=== PATIENT | female | born 1985 | race Caucasian/White ===

== ENCOUNTER 2024-12-04 12:59 | Outpatient (AMB) | payer BC, SELFPAY ==
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
[2024-12-04 13:12] VITALS: BP 126/63; PULSE 69; RESP 16; TEMP 36.9; O2SAT 98; BMI 28.4
== END 2024-12-04 13:50 | disposition home or self-care (01) ==
LOC: HO.HMCFM 13:00
PROVIDERS: PCP Nurse Practitioner Family; Visit Provider Nurse Practitioner Family
DX: Z23 Encounter for immunization (principal)

== ENCOUNTER → 2024-12-04 12:59 | Outpatient (BNVA) | payer BC, SELFPAY | PROVIDERS: PCP Nurse Practitioner Family; Visit Provider Nurse Practitioner Family | DX: Z00.00 Encounter for general adult medical examination without abnormal findings (principal); Z23 Encounter for immunization; F41.9 Anxiety disorder, unspecified; F32.A Depression, unspecified; H52.10 Myopia, unspecified eye; F12.90 Cannabis use, unspecified, uncomplicated; E63.9 Nutritional deficiency, unspecified; Z72.89 Other problems related to lifestyle; Z79.899 Other long term (current) drug therapy; Z13.31 Encounter for screening for depression; Z13.30 Encounter for screening examination for mental health and behavioral disorders, unspecified | CPT/HCPCS: 90471; 90715; 96127 ==

== ENCOUNTER 2024-12-23 07:37 | Outpatient (REF) | payer BC, SELFPAY ==
[2024-12-23 08:04] LABS: MANUAL DIFF FLAG NO
[2024-12-23 08:29] LABS: Basophils Absolute Auto 0.1 X10*3/uL (0.0-0.2); Basophils Percent Auto 1.1 % (0-2); Eosinophils Absolute Auto 0.2 X10*3/uL (0.0-0.4); Eosinophils Percent Auto 3.2 % (0-4); Hematocrit 42.3 % (37.0-47.0); Hemoglobin 14.4 g/dl (12.0-16.0); Imm Gran Abs Auto 0.01 X10*3/uL (0.00-0.03); Imm Gran Pct Auto 0.2 % (0.0-0.4); Lymphocytes Absolute Auto 2.1 X10*3/uL (1.2-4.9); Lymphocytes Percent Auto 32.6 % (20-40); Mean Corpuscular Volume 85.3 fL (80.0-98.0); Mean Platelet Volume 10.7 fL (9.4-12.3); Monocytes Absolute Auto 0.6 X10*3/uL (0.1-1.2); Monocytes Percent Auto 8.4 % (2-11); Neutrophils Absolute Auto 3.6 x10*3/uL (2.0-8.3); Neutrophils Percent Auto 54.5 % (45-73); Platelet Count 284 X10*3/uL (160-400); Red Blood Count 4.96 X10*6/uL (4.20-5.50); Red Cell Distribution Width 13.2 % (11.0-16.0); White Blood Count 6.5 X10*3/uL (4.8-10.8)
[2024-12-23 09:00] LABS: Alanine Aminotransferase 17 U/L (0-31); Albumin Level 4.4 g/dL (3.5-5.0); Alkaline Phosphatase 68 U/L (39-117); Anion Gap 12 (12-20); Aspartate Amino Transferase 14 U/L (5-31); Bilirubin Total 1.1 mg/dL (0.0-1.0); Blood Urea Nitrogen 11 mg/dL (9-16); Calcium 9.1 mg/dL (8.4-10.2); Carbon Dioxide 25 mmol/L (22-29); Chloride 108 mmol/L (96-108); Cholesterol 213 mg/dL (<200); Estimated Glomerular Filt Rate > 60; Glucose Fasting 101 mg/dL (60-99); HDL Cholesterol 41 mg/dL (>40); LDL Cholesterol Calculated 140 mg/dL (<100); Sodium 141 mmol/L (135-145); Total Protein 6.7 g/dL (6.5-8.0); Triglycerides 160 mg/dL (<150)
[2024-12-23 09:16] LABS: TSH reflex Free T4 1.12 uIU/mL (0.32-4.0); Vitamin D 25-OH Total 15.9 ng/mL (>30)
[2024-12-23 09:53] LABS: Appearance Urine Cloudy; Color Urine Yellow; Glucose Urine UA Negative (Negative); Leukocyte Esterase Urine Negative (Negative); Nitrite Urine Negative (Negative); Specific Gravity - Urine >= 1.030 (1.005-1.025); Urine Blood Negative (Negative); Urine Ketones Negative (Negative); Urine Protein Trace mg/dL (Neg-Trace)
[2024-12-23 10:52] LABS: Microalbum/Creatinine Ratio Ur 5.4 ug/mg cr (<30)
== END 2024-12-23 07:38 | disposition home or self-care (01) ==
LOC: HO.LAB 07:37
PROVIDERS: PCP Nurse Practitioner Family; Visit Provider Nurse Practitioner Family
DX: Z00.00 Encounter for general adult medical examination without abnormal findings (principal)
CPT/HCPCS: 36415; 80053; 80061; 81003; 82043; 82306; 82570; 84443; 85025

== ENCOUNTER 2025-01-01 13:25 | Outpatient (AMB) | payer BC, SELFPAY ==
--- NOTE | 2025-01-01 13:21 | A.OFFPC_ITS ---
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 Required: No Is last menstrual period known: Yes Last menstrual period: 12/13/24 Post menopausal: No Patient : No Allergies ibuprofen (From Motrin) Allergy (Intermediate, Verified 01/01/25 13:22) Swelling latex Allergy (Intermediate, Verified 01/01/25 13:22) blisters Tobacco use date assessed: 01/01/25 Dental Screening Dental Screen Date: 01/01/25 Did you have a dental visit in the last 12 months?: Yes Did you have a dental problem in the last 6 months where you did not have access to dental care?: No Was dental information given to patient?: Patient has dentist HPI HPI Comments History of Present Illness Details 39-year-old female presents [facility] for review of recent lab results. She notes that her anxiety and depressive symptoms have been controlled with sertraline. She notes that she has been making unhealthy dietary choices and walks frequently. She states that her father and mother have history of hyperlipidemia in her father had an ME in his 40s. No acute symptoms at this time. [facility] Medical History (Updated 01/01/25 @ 15:47 by Lucrecia Zimmerman CNP) Eczema Depression Anxiety History of gastroesophageal reflux (GERD) Family History (Updated 12/04/24 @ 13:21 by Antonette Murphy MA) Mother High blood pressure FH: thyroid disease Father High blood pressure Cardiovascular disease Brother High blood pressure High cholesterol Maternal Grandmother Diabetes Breast cancer Liver cancer Maternal Grandmother No problems noted. Maternal Grandfather Diabetes Social History (Updated 12/04/24 @ 13:11 by Antonette Murphy MA) Housing: Apartment Patient Tobacco Use Status: Never used Tobacco e-Cigarette/Vaping Use: Currently Using Second Hand Smoke Exposure: No Substance Use Type: Marijuana Patient : No service: No Current occupational status: employed Current occupation: [employer] Current occupational exposures/hazards: No Cognitive needs: No Hearing needs: No Vision needs: Yes Female Reproductive History Menstrual Date of last menstrual period: 12/13/24 Questionnaire Thrive Questionnaire Date Thrive assessed: 11/27/24 I am a: Patient What is your living situation today?: I have a steady place to live Within the past 12 months, did the food you bought not last and you didn't have the money to get more?: Never true Within the past 12 months, did you worry whether your food would run out before you got money to buy more?: Never true Do you have trouble paying for medicines?: No Do you have trouble getting transportation to medical appointments?: No Do you have trouble paying your heating and electricity bill?: No Do you have trouble taking care of your child, family member or friend?: No Do you have trouble with day-to-day activities such as bathing, preparing meals, shopping, managing finances, etc.?: No Are you currently unemployed and looking for a job?: No Are you interested in more education?: Yes Please select the resources that you would like help with: Education Currently or been in a relationship where the following occur: No concerns reported THRIVE Score: 0 MARIA T-7 AMB Questionnaire MARIA T-7 Date MARIA T - 7 assessed: 12/04/24 Source: Developed by Drs. Jonah Alvarez, Anamaria Melara, Gerardo Rhodes and colleagues, with an educational floresita from [employer]. Review of Systems Const Details: Denies chills, Denies fatigue, Denies fever(s), Denies headache(s) and Denies weakness Cardiac Denies chest pain, Denies claudication, Denies leg edema, Denies lighthe adedness, Denies palpitations, Denies dyspnea, Denies dyspnea on exertion, Denies orthopnea and Denies other (Loss of consciousness) Resp Denies cough, Denies excessive phlegm production, Denies dyspnea, Denies dyspnea on exertion, Denies snoring and Denies wheezing Physical exam (Primary Care) Tobacco/Smoking Status: Tobacco use Status Tobacco use date assessed 01/01/25 01/01/25 13:22 Patient Tobacco Use Status Never used Tobacco 01/01/25 13:22 e-Cigarette/Vaping Use Currently Using 01/01/25 13:22 Thrive Assessment: Date of Thrive Assessment Date Thrive assessed 11/27/24 01/01/25 13:22 Currently or been in a relationship where the following occur: No concerns reported Const Other: Patient is alert and oriented x3 Telehealth Telehealth Telehealth Platform: Telephone Location of provider rendering services: practice address Location of patient: address on file Patient Identification confirmed using: Name, : Yes Telehealth method: voice only Patient verbally consented to treatment: Yes Patient verbally consented to billing insurance company: Yes Patient informed of any privacy concerns related to visit: Yes Coding Level of Care Code Tele Est Pt Level 3 (15830) Diagnoses Hyperlipidemia E78.5 Elevated fasting glucose R73.01 Vitamin D deficiency E55.9 Bilirubinemia E80.6 Time Spent (min) 20 Assessment & Plan Assessment & Plan (1) Hyperlipidemia: Code(s): E78.5 - Hyperlipidemia, unspecified Category: Medical Plan: Recent triglycerides, total cholesterol, and LDL levels are elevated, 160, 213, and 140 respectively. She has been making on healthy dietary choices. Her father and mother have history of hyperlipidemia. Her father had an ME in his 40s. Advised to limit foods high in saturated fat and avoid foods high in trans fat. Routine exercise encouraged. Fast for 10-12 hours, may drink water, performed lipid panel blood work 2-3 days before next visit. Follow-up for a telehealth visit in 2 months. Return sooner with symptoms or concerns. Verbalized understanding and agreed with the treatment plan. (2) Elevated fasting glucose: Code(s): R73.01 - Impaired fasting glucose Category: Medical Plan: Recent fasting glucose is slightly elevated, 101. Healthy diet and routine exercise encouraged. Will recheck fasting glucose and make changes as needed. Verbalized understanding and agreed with the plan. (3) Vitamin D deficiency: Code(s): E55.9 - Vitamin D deficiency, unspecified Category: Medical Plan: Recent vitamin-D level is elevated, 15.9. Vitamin D3 2000 units daily ordered; advised to take as prescribed. Informed that the sun is a good source of vitamin-D. Will recheck vitamin-D level in 2 months. Verbalized understanding and agreed with the plan. (4) Bilirubinemia: Code(s): E80.6 - Other disorders of bilirubin metabolism Category: Medical Plan: Recent bilirubin level is slightly elevated, 1.1. Normal liver enzymes. Gilbert syndrome is possible. Will recheck bilirubin levels. Orders: Orders Glucose Fasting 2 Months R73.01 - Impaired fasting glucose Lipid Panel 2 Months E78.5 - Hyperlipidemia, unspecified Vitamin D 25-OH Total 2 Months E55.9 - Vitamin D deficiency, unspecified Bilirubin Total 2 Months E80.6 - Other disorders of bilirubin metabolism Medications: New cholecalciferol (vitamin D3) 50 mcg PO DAILY 30 tabs 3RF 30 days
== END 2025-01-01 15:52 | disposition home or self-care (01) ==
LOC: HO.HMCFM 13:25
PROVIDERS: PCP Nurse Practitioner Family; Visit Provider Nurse Practitioner Family
DX: E78.5 Hyperlipidemia, unspecified (principal); R73.01 Impaired fasting glucose; E55.9 Vitamin D deficiency, unspecified; E80.6 Other disorders of bilirubin metabolism

== ENCOUNTER → 2025-01-01 13:25 | Outpatient (BNVA) | payer BC, SELFPAY | PROVIDERS: PCP Nurse Practitioner Family; Visit Provider Nurse Practitioner Family | DX: R73.01 Impaired fasting glucose (principal); E78.5 Hyperlipidemia, unspecified; E55.9 Vitamin D deficiency, unspecified; E80.6 Other disorders of bilirubin metabolism | CPT/HCPCS: 98967 ==

== ENCOUNTER 2025-03-03 10:08 | Outpatient (REF) | payer BC, SELFPAY ==
[2025-03-03 12:13] LABS: Cholesterol 223 mg/dL (<200); HDL Cholesterol 49 mg/dL (>40); Triglycerides 104 mg/dL (<150)
== END 2025-03-03 10:09 | disposition home or self-care (01) ==
LOC: HO.LAB 10:08
PROVIDERS: PCP Nurse Practitioner Family; Visit Provider Nurse Practitioner Family
DX: E80.6 Other disorders of bilirubin metabolism (principal); E55.9 Vitamin D deficiency, unspecified; E78.5 Hyperlipidemia, unspecified; R73.01 Impaired fasting glucose
CPT/HCPCS: 36415; 80061; 82247; 82306; 82947

== ENCOUNTER 2025-03-06 12:44 | Outpatient (AMB) | payer BC, SELFPAY ==
--- NOTE | 2025-03-06 12:48 | A.OFFPC_ITS ---
Vital Signs 03/06/25 12:55 Height 5 ft 3 in Weight 155 lb 8 oz BMI 27.5 BP 120/70 Blood Pressure Location Rt brachial Position Sitting Respiration 16 Pulse 69 Pulse Source Pulse Oximeter Temp 98.1 F Temp Source Oral Pulse Oximetry (%) 96 Oxygen Delivery Method Room Air Intake Visit Reasons: 2 mos HLD, elevated fasting glucose, vitamin-D def Intake Note: patient here for 2month follow up on HLD, elevated fasting glucose and vit D def Intranet Support Required: No Is last menstrual period known: Yes Last menstrual period: 03/06/25 Post menopausal: No Patient : No Allergies ibuprofen (From Motrin) Allergy (Intermediate, Verified 03/06/25 12:53) Swelling latex Allergy (Intermediate, Verified 03/06/25 12:53) blisters Tobacco use date assessed: 03/06/25 Dental Screening Dental Screen Date: 03/06/25 Did you have a dental visit in the last 12 months?: Yes Did you have a dental problem in the last 6 months where you did not have access to dental care?: No Was dental information given to patient?: Patient has dentist HPI HPI Comments History of Present Illness Details 39-year-old female presents for labs rev iew for hyperlipidemia, elevated fasting glucose, vitamin-D deficiency, and hyperbilirubinemia follow- up. She admits to taking her medications as prescribed without adverse reactions. She notes that she has been making healthy dietary choices and exercising routinely. No acute symptoms at this time. [facility] Medical History (Updated 01/01/25 @ 15:47 by Lucrecia Zimmerman CNP) Eczema Depression Anxiety History of gastroesophageal reflux (GERD) Family History (Updated 12/04/24 @ 13:21 by Antonette Murphy MA) Mother High blood pressure FH: thyroid disease Father High blood pressure Cardiovascular disease Brother High blood pressure High cholesterol Maternal Grandmother Diabetes Breast cancer Liver cancer Maternal Grandmother No problems noted. Maternal Grandfather Diabetes Social History (Updated 12/04/24 @ 13:11 by Antonette Murphy MA) Housing: Apartment Patient Tobacco Use Status: Never used Tobacco e-Cigarette/Vaping Use: Currently Using Second Hand Smoke Exposure: No Substance Use Type: Marijuana Patient : No service: No Current occupational status: employed Current occupation: [employer] Current occupational exposures/hazards: No Cognitive needs: No Hearing needs: No Vision needs: Yes Female Reproductive History Menstrual Date of last menstrual period: 03/06/25 Questionnaire Thrive Questionnaire Date Thrive assessed: 11/27/24 MARIA T-7 AMB Questionnaire MARIA T-7 Date MARIA T - 7 assessed: 12/04/24 Source: Developed by Drs. Jonah Alvarez, Anamaira Melara, Gerardo Rhodes and colleagues, with an educational floresita from [employer]. Review of Systems Const Details: Const Denies chills, Denies fatigue, Denies fever(s), Denies headache(s) and Denies weakness ENT Denies dizziness and Denies headache(s) Card Denies chest pain, Denies lightheadedness, Denies dyspnea and Denies other (Palpitations) Resp Denies cough, Denies dyspnea, Denies wheezing and Denies other ( shortness of breath) GI Denies abdominal pain, Denies melena, Denies hematochezia, Denies change in bowel habits, Denies dyspepsia and Denies nausea Denies hematuria and Denies dysuria Musc Denies abnormal gait, Denies myalgias, Denies arthralgias, Denies numbness and Denies tingling Skin/Breast Denies rash, Denies unusual bruising and Denies wounds Neuro Denies abnormal gait, Denies dizziness, Denies headache(s), Denies memory loss, Denies numbness, Denies Sensory deficit (Neuro), Denies tingling and Denies weakness Psych Denies anxiety, Denies depression, Denies memory loss Endo Denies cold intolerance, Denies fatigue, Denies heat intolerance, Denies polydipsia and Denies polyuria Aller/Immun Denies wheezing Physical exam (Primary Care) Vital Signs: Last Vital Signs Temp 98.1 F 03/06/25 12:55 Pulse 69 03/06/25 12:55 Resp 16 03/06/25 12:55 BP 120/70 03/06/25 12:55 Pulse Ox 96 03/06/25 12:55 Oxygen Delivery Method Room Air 03/06/25 12:55 BMI result Body Mass Index 27.5 Tobacco/Smoking Status: Tobacco use Status Tobacco use date assessed 03/06/25 03/06/25 12:56 Patient Tobacco Use Status Never used Tobacco 03/06/25 12:50 e-Cigarette/Vaping Use Currently Using 03/06/25 12:50 Thrive Assessment: Date of Thrive Assessment Date Thrive assessed 11/27/24 03/06/25 12:50 Const Other: General: no acute distress and well developed Nutritional Appearance: well nourished Orientation/consciousness: patient oriented x3 HENMT Head: Yes normocephalic and Yes atraumatic Eyes General: appearance normal, both eyes and all related structures Pupils: Equal, round and reactive pupils present EOM: EOMs intact bilaterally Resp Effort & Inspection: normal respiratory effort Auscultation: clear to auscultation bilaterally Cardio Rate: regular rate Rhythm: regular rhythm Heart sounds: S1 normal heart sound present, S2 normal heart sound present, no gallops, no murmurs and no rubs GI Palpation (GI): No Abdominal aortic bruit present, Soft to palpation, nontender, No hepatosplenomegaly present and No Rebound tenderness present Auscultation: normal bowel sounds General: Yes no CVA tenderness Back/Spine/Pelvis Back: no CVA tenderness Cervical Spine: cervical ROM normal and No Cervical spine tenderness Thoracic/Lumbar Spine: thoraco-lumbar ROM normal, No pain with thoraco-lumbar ROM, No thoracic spinal tenderness and No lumbar spinal tenderness Extrem General: Yes normal to inspection, No edema and No calf tenderness Skin General: warm and dry. Normal skin color. Normal skin turgor Neuro General: patient oriented x3, gait normal and no focal neuro deficit Cranial nerves: Yes Equal, round and reactive pupils present Cognition (Neuro): normal cognition Gait exam (Neuro): Normal gait present Sensory Exam: No Sensory deficit (Neuro) Psych Appearance: grossly normal Affect: normal affect Attitude: cooperative Thought process: Normal thought process present Coding Level of Care Code Est Pt Level 3 (26530) Diagnoses Hyperlipidemia E78.5 Vitamin D deficiency E55.9 Elevated fasting glucose R73.01 Bilirubinemia E80.6 Assessment & Plan Assessment & Plan (1) Hyperlipidemia: Code(s): E78.5 - Hyperlipidemia, unspecified Category: Medical Plan: Recent total cholesterol and LDL levels are elevated, 223 and 154 respectively; previous levels were 213 and 140 respectively. Triglycerides and HDL levels are normal. Advised to limit foods high in saturated fat and avoid foods high in trans fat. Routine exercise encouraged. Fast for 10-12 hours, may drink water, and perform lipid panel blood work 2-3 days before next visit. Follow-up for telehealth visit in 2 months. Return sooner with symptoms or concerns. Verbalized understanding and agreed with the plan. (2) Vitamin D deficiency: Code(s): E55.9 - Vitamin D deficiency, unspecified Category: Medical Plan: Recent vitamin-D level is normal, 34. Continue current treatment regimen. Will monitor vitamin-D level periodically. Verbalized understanding and agreed with the plan. (3) Elevated fasting glucose: Code(s): R73.01 - Impaired fasting glucose Category: Medical Plan: Recent fasting glucose is normal. Will monitor fasting glucose periodically. Verbalized understanding and agreed with the plan. (4) Bilirubinemia: Code(s): E80.6 - Other disorders of bilirubin metabolism Category: Medical Plan: Recent total bilirubin level was normal. Orders: Orders Lipid Panel 2 Months E78.5 - Hyperlipidemia, unspecified
[2025-03-06 12:55] VITALS: BP 120/70; PULSE 69; RESP 16; TEMP 36.7; O2SAT 96; BMI 27.5
== END 2025-03-06 17:01 | disposition home or self-care (01) ==
LOC: HO.HMCFM 12:44
PROVIDERS: PCP Nurse Practitioner Family; Visit Provider Nurse Practitioner Family
DX: E78.5 Hyperlipidemia, unspecified (principal); E55.9 Vitamin D deficiency, unspecified; R73.01 Impaired fasting glucose; E80.6 Other disorders of bilirubin metabolism

== ENCOUNTER 2025-04-28 08:26 | Outpatient (REF) | payer BC, SELFPAY ==
[2025-04-28 10:02] LABS: Cholesterol 259 mg/dL (<200); HDL Cholesterol 50 mg/dL (>40); Triglycerides 175 mg/dL (<150)
== END 2025-04-28 08:27 | disposition home or self-care (01) ==
LOC: HO.LAB 08:26
PROVIDERS: PCP Nurse Practitioner Family; Visit Provider Nurse Practitioner Family
DX: E78.5 Hyperlipidemia, unspecified (principal)
CPT/HCPCS: 36415; 80061

== ENCOUNTER 2025-05-04 10:11 | Outpatient (AMB) | payer BC, SELFPAY ==
--- NOTE | 2025-05-04 09:56 | MHC.PC.OV ---
Intake Visit Reasons: Tele 2 mos HLD Intake Note: patient here for 2month telehealth follow up on HLD Supervisor Advice Required: No Is last menstrual period known: Yes Last menstrual period: 04/24/25 Post menopausal: No Patient : No Allergies ibuprofen (From Motrin) Allergy (Intermediate, Verified 05/04/25 09:57) Swelling latex Allergy (Intermediate, Verified 05/04/25 09:57) blisters Tobacco use date assessed: 05/04/25 Dental Screening Dental Screen Date: 05/04/25 Did you have a dental visit in the last 12 months?: Yes Did you have a dental problem in the last 6 months where you did not have access to dental care?: No Was dental information given to patient?: Patient has dentist HPI HPI Comments History of Present Illness Details 39-year-old female presents for a telehealth visit for hyperlipidemia. She notes that her diet is not great, she has been eating out a lot. She eats a lot of steak. She does not like cheese. She has been doing squats and walking regularly. She is willing to start medication to lower her cholesterol level. She notes that her mood is mostly stable but fluctuates at times. She thinks current dose of sertraline is not effective. She offers no complaints and denies acute symptoms at this time. [facility] Medical History (Updated 01/01/25 @ 15:47 by Lucrecia Zimmerman CNP) Eczema Depression Anxiety History of gastroesophageal reflux (GERD) Family History (Updated 12/04/24 @ 13:21 by KAYLA Benoit) Mother High blood pressure FH: thyroid disease Father High blood pressure Cardiovascular disease Brother High blood pressure High cholesterol Maternal Grandmother Diabetes Breast cancer Liver cancer Maternal Grandmother No problems noted. Maternal Grandfather Diabetes Social History (Updated 12/04/24 @ 13:11 by KAYLA Benoit) Housing: Apartment Patient Tobacco Use Status: Never used Tobacco e-Cigarette/Vaping Use: Currently Using Second Hand Smoke Exposure: No Substance Use Type: Marijuana Patient : No service: No Current occupational status: employed Current occupation: [employer] Current occupational exposures/hazards: No Cognitive needs: No Hearing needs: No Vision needs: Yes Female Reproductive History Menstrual Date of last menstrual period: 04/24/25 Questionnaire Thrive Questionnaire Date Thrive assessed: 11/27/24 I am a: Patient What is your living situation today?: I have a steady place to live Within the past 12 months, did the food you bought not last and you didn't have the money to get more?: Never true Within the past 12 months, did you worry whether your food would run out before you got money to buy more?: Never true Do you have trouble paying for medicines?: No Do you have trouble getting transportation to medical appointments?: No Do you have trouble paying your heating and electricity bill?: No Do you have trouble taking care of your child, family member or friend?: No Do you have trouble with day-to-day activities such as bathing, preparing meals, shopping, managing finances, etc.?: No Are you currently unemployed and looking for a job?: No Are you interested in more education?: Yes Please select the resources that you would like help with: Education Currently or been in a relationship where the following occur: No concerns reported THRIVE Score: 0 MARIA T-7 AMB Questionnaire MARIA T-7 Date MARIA T - 7 assessed: 12/04/24 Source: Developed by Drs. Jonah Alvarez, Anamaria Melara, Gerardo Rhodes and colleagues, with an educational floresita from [employer]. Review of Systems Const Details: Denies chills, Denies fatigue, Denies fever(s), Denies headache(s) and Denies weakness Cardiac Denies chest pain, Denies claudication, Denies leg edema, Denies lightheadedness, Denies palpitations, Denies dyspnea, Denies dyspnea on exertion, Denies orthopnea and Denies other (Loss of consciousness) Resp Denies cough, Denies excessive phlegm production, Denies dyspnea, Denies dyspnea on exertion, Denies snoring and Denies wheezing Physical exam (Primary Care) Tobacco/Smoking Status: Tobacco use Status Tobacco use date assessed 05/04/25 05/04/25 09:58 Patient Tobacco Use Status Never used Tobacco 05/04/25 09:58 e-Cigarette/Vaping Use Currently Using 05/04/25 09:58 Thrive Assessment: Date of Thrive Assessment Date Thrive assessed 11/27/24 05/04/25 09:58 Currently or been in a relationship where the following occur: No concerns reported Const Other: Patient is alert and oriented x3 Telehealth Telehealth Telehealth Platform: Telephone Location of provider rendering services: practice address Location of patient: address on file Patient Identification confirmed using: Name, : Yes Telehealth method: voice only Patient verbally consented to treatment: Yes Patient verbally consented to billing insurance company: Yes Patient informed of any privacy concerns related to visit: Yes Coding Level of Care Code Tele Est Pt Level 3 (21462) Diagnoses Hyperlipidemia E78.5 Anxiety and depression F41.9; F32.A Time Spent (min) 20 Assessment & Plan Assessment & Plan (1) Hyperlipidemia: Code(s): E78.5 - Hyperlipidemia, unspecified Category: Medical Plan: Recent triglyceride, total cholesterol, and LDL levels are elevated, 175, 259, and 174 respectively, previous levels were 104, 223 and 154 respectively; HDL level was normal. Atorvastatin 10 mg daily at bedtime ordered; advised to take as prescribed. Instructed on the risks, benefits, and potential adverse reactions of the medication. Advised to limit foods high in saturated fat and avoid foods high in trans fat. Routine exercise encouraged. Fast for 10-12 hours, may drink water, and perform lipid panel blood work a few days before next visit. Follow-up for transfer of care with a new provider for hyperlipidemia, anxiety, and depression. Return sooner with symptoms or concerns. Verbalized understanding and agreed with the plan. (2) Anxiety and depression: Code(s): F41.9 - Anxiety disorder, unspecified; F32.A - Depression, unspecified Category: Medical Plan: She notes that her mood is mostly stable but fluctuates at times. She thinks current dose of sertraline is not effective. Sertraline increased to 75 mg daily; advised to take as prescribed. Routine exercise encouraged. Follow-up in 2 months or sooner with worsening or new symptoms. Verbalized understanding and agreed with the plan. Orders: Orders Lipid Panel 2 Months E78.5 - Hyperlipidemia, unspecified Medications: New atorvastatin (Lipitor) 10 mg PO BEDTIME 30 tabs 3RF 30 days sertraline Take with sertraline 50 mg to equal 75 mg daily 25 mg PO DAILY 30 tabs 3RF 30 days
== END 2025-05-04 11:06 | disposition home or self-care (01) ==
LOC: HO.HMCFM 10:11
PROVIDERS: PCP Nurse Practitioner Family; Visit Provider Nurse Practitioner Family
DX: E78.5 Hyperlipidemia, unspecified (principal); F41.9 Anxiety disorder, unspecified; F32.A Depression, unspecified

== ENCOUNTER 2025-05-21 11:42 | Outpatient (REF) | payer BC, SELFPAY ==
--- NOTE | ~2025-05-21 | MM_ITS ---
EXAMINATION: MM SCREENING DIGITAL BREAST TOMOSYNTHESIS, BILATERAL CLINICAL INFORMATION: Screening. Asymptomatic. COMPARISON: Mammography: Comparison is made with available priors TECHNIQUE: Digital breast mammography with tomosynthesis is performed in both the craniocaudal and mediolateral oblique views along with computer-aided detection (CAD). FINDINGS: The breasts are heterogeneously dense, which may obscure small masses. Right: Right marker clip. There are no significant masses, abnormal calcifications, or other abnormalities. Left: Circumscribed oval mass retroareolar region anterior depth. No suspicious calcifications or other abnormal findings. MM/MM tomosynthesis screening BI IMPRESSION: Additional imaging is recommended ASSESSMENT: BI-RADS Category 0: Incomplete - Need additional Imaging Evaluation RECOMMENDATION: 1. Additional views of the left breast. 2. Targeted ultrasound if warranted after review of the additional views. 3. Radiology department staff will contact the patient for additional imaging. Additional Imaging required Electronically signed by: Columba Yuen DO 05/29/2025 10:26 AM JOEL
== END 2025-05-21 11:43 | disposition home or self-care (01) ==
LOC: HO.MAMMO 11:42
PROVIDERS: PCP Nurse Practitioner Family; Visit Provider Nurse Practitioner Family
DX: Z12.31 Encounter for screening mammogram for malignant neoplasm of breast (principal)
CPT/HCPCS: 77063; 77067

== ENCOUNTER → 2025-05-21 11:45 | Outpatient (BNV) | payer BC, SELFPAY | PROVIDERS: PCP Nurse Practitioner Family; Visit Provider Internal Medicine | DX: Z12.31 Encounter for screening mammogram for malignant neoplasm of breast (principal) | CPT/HCPCS: 77063; 77067 ==

== ENCOUNTER 2025-06-05 14:47 | Outpatient (REF) | payer BC, SELFPAY ==
--- NOTE | ~2025-06-05 | US_ITS ---
EXAMINATION(S): 1. MM DIAGNOSTIC DIGITAL BREAST TOMOSYNTHESIS, LEFT 2. TARGETED ULTRASOUND OF THE LEFT BREAST CLINICAL INFORMATION: -Callback from screening for left retroareolar mass anterior depth. -Ultrasound-guided needle core biopsy of the right breast on April 15, 2021 at [facility], with pathology results showing fibroadenoma. COMPARISON: May 21, 2025 TECHNIQUE: Digital breast tomosynthesis is performed with spot compression tomosynthesis MLO and CC views. FINDINGS: BREAST COMPOSITION: There are scattered areas of fibroglandular density. LEFT BREAST: Redemonstration of an approximately 2.7 cm mass in the subareolar region. Targeted ultrasound of the left breast was performed at the location of the mammographic finding. The survey shows a 2.8 x 1.2 x 2.6 cm cyst at 12 o'clock position retroareolar, containing a very small amount of debris in the dependent portion of the cyst. US/US Breast RT Limited Mamm Only IMPRESSION: LEFT BREAST: Complicated cyst measuring 2.8 cm in the retroareolar region correlates with the mammographic finding. Benign, no mammographic evidence of malignancy. Normal interval follow-up is recommended in 12 months. ASSESSMENT: BI-RADS: Category 2: Benign RECOMMENDATION: 1 year F/U Results were provided to the patient at time of visit by the technologist. This patient's information was entered into a reminder system with a target due date for their next mammogram. Electronically signed by: Greyson Be MD 06/05/2025 03:43 PM [facility]
--- NOTE | ~2025-06-05 | MM_ITS ---
EXAMINATION(S): 1. MM DIAGNOSTIC DIGITAL BREAST TOMOSYNTHESIS, LEFT 2. TARGETED ULTRASOUND OF THE LEFT BREAST CLINICAL INFORMATION: -Callback from screening for left retroareolar mass anterior depth. -Ultrasound-guided needle core biopsy of the right breast on April 15, 2021 at [facility], with pathology results showing fibroadenoma. COMPARISON: May 21, 2025 TECHNIQUE: Digital breast tomosynthesis is performed with spot compression tomosynthesis MLO and CC views. FINDINGS: BREAST COMPOSITION: There are scattered areas of fibroglandular density. LEFT BREAST: Redemonstration of an approximately 2.7 cm mass in the subareolar region. Targeted ultrasound of the left breast was performed at the location of the mammographic finding. The survey shows a 2.8 x 1.2 x 2.6 cm cyst at 12 o'clock position retroareolar, containing a very small amount of debris in the dependent portion of the cyst. MM/MM tomosynthesis added views L IMPRESSION: LEFT BREAST: Complicated cyst measuring 2.8 cm in the retroareolar region correlates with the mammographic finding. Benign, no mammographic evidence of malignancy. Normal interval follow-up is recommended in 12 months. ASSESSMENT: BI-RADS: Category 2: Benign RECOMMENDATION: 1 year F/U Results were provided to the patient at time of visit by the technologist. This patient's information was entered into a reminder system with a target due date for their next mammogram. Electronically signed by: Greyson Be MD 06/05/2025 03:43 PM [facility] [place]
== END 2025-06-05 14:48 | disposition home or self-care (01) ==
LOC: HO.MAMMO 14:47
PROVIDERS: PCP Nurse Practitioner Family; Visit Provider Nurse Practitioner Family
DX: N63.42 Unspecified lump in left breast, subareolar (principal)
CPT/HCPCS: 76642; 77061; 77065

== ENCOUNTER → 2025-06-05 15:00 | Outpatient (BNV) | payer BC, SELFPAY | PROVIDERS: PCP Nurse Practitioner Family; Visit Provider Radiology Body Imaging | DX: N60.02 Solitary cyst of left breast (principal) | CPT/HCPCS: 76642; 77061; 77065 ==